=== PATIENT | female | born 1985 | race Caucasian/White ===

== ENCOUNTER 2019-06-28 20:43 | Emergency (ER) | payer OTHER ==
[~2019-06-28] VITALS: Ht 165.1 cm; Wt 69.0 kg
[2019-06-28] MEDS ORDERED: CELEXA10 MG PO (20:57)
[2019-06-28] MEDS ORDERED: MIRENA1 EACH INTRAUTERI (20:59)
[2019-06-28] MEDS ORDERED: MELOXICAM7.5 MG PO (22:11)
[2019-06-28 22:18] VITALS: BP 142/86
== END 2019-06-28 22:18 | disposition home or self-care (01) ==
LOC: M.ERS 20:43
DX: S63.591A Other specified sprain of right wrist, initial encounter (principal); W18.39XA Other fall on same level, initial encounter; Y93.89 Activity, other specified; Y92.89 Other specified places as the place of occurrence of the external cause; Y99.8 Other external cause status